=== PATIENT | male | born 1990 | race Two or more races ===

== ENCOUNTER 2024-09-26 22:56 | Inpatient (IN) | payer OTHER ==
[~2024-09-26] VITALS: Ht 180.3 cm; Wt 62.0 kg
[2024-09-27 00:18] LABS: Basophils # (auto) 0.1 10 ^3/uL (0-0.2); Basophils % (auto) 0.7 % (0.0-2.0); Eosinophils # (auto) 0.1 10 ^3/uL (0-0.8); Hematocrit 38.1 % (41.0-53.0); Hemoglobin 13.2 g/dL (13.5-17.5); Lymphocytes # (auto) 2.3 10 ^3/uL (0.4-5.4); Lymphocytes % (auto) 16.2 % (10.0-50.0); Mean Corpuscular Hemoglobin 31.9 pg (28.0-32.0); Mean Corpuscular Hgb Conc. 34.7 g/dL (32.0-36.0); Mean Corpuscular Volume 92.1 fL (80.0-100.0); Monocytes # (auto) 1.6 10 ^3/uL (0-1.3); Monocytes % (auto) 11.1 % (0.0-12.0); Neutrophils # (auto) 9.9 10 ^3/uL (1.6-8.6); Nucleated Red Blood Cells % 2.3 %; Platelet Count (auto) 321 10^3/uL (140-450); Red Blood Cells 4.13 10^6/uL (4.5-5.90); Red Cell Distribution Width 14.7 % (11.8-14.3)
[2024-09-27 00:33] LABS: Chloride 108 mmol/L (98-107); Potassium 4.1 mmol/L (3.5-5.1); Sodium 140 mmol/L (136-145)
[2024-09-27 00:34] LABS: Anion Gap 7 (5-15); Calcium 10.4 mg/dL (8.7-10.4); Carbon Dioxide 25 mmol/L (20-31)
[2024-09-27 00:39] LABS: BUN/Creatinine Ratio 12.7 (10.0-20.0); Blood Urea Nitrogen 10 mg/dL (9-23); Glucose 84 mg/dL (74-106)
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
[2024-09-27] MEDS: HYDROcodone-ACET 10/325MG TAB PO ONE (02:51)
[2024-09-27 02:52] VITALS: PULSE 74; RESP 17; O2SAT 95
[2024-09-27] MEDS: KETOROLAC TROMETH 30 MG/ML 1ML VIAL IV ONE (03:26)
[2024-09-27] MEDS: SODIUM CHLORIDE 0.9% 1,000 ML IV ONE ×2 (03:27→06:00)
--- NOTE | 2024-09-27 06:49 | DVHHP2 ---
History of Present Illness Reason for Visit: Lower extremity pain History of Present Illness 34-year-old male presents for evaluation of lower extremity pain. Patient with history of sickle cell crisis last flare of the two years ago presents for evaluation of left lower extremity sharp pain which has been ongoing for the past one day. He feels he is having a sickle cell crisis. Denies any other acute complaints at the moment. Past Medical History Sickle cell disease Past Surgical History Denies Family History Noncontributory Smoke: No ALCOHOL: none Drugs: None Lives: with Family Review of Systems Review of Systems Review of systems are currently negative otherwise addressed in HPI. Allergies: Coded Allergies: NO KNOWN ALLERGIES (Unverified , 09/26/24) Medications Current Medications Medications Dose Ordered Sig/Jimmy Route Start Time Stop Time Status Last Admin Dose Admin Acetaminophen/ Hydrocodone Bitart 1 tab Q4HP PRN PO 09/27/24 05:00 Temazepam 15 mg QHSP PRN PO 09/27/24 05:00 Ondansetron HCl 4 mg Q4HP PRN IV 09/27/24 05:00 Acetaminophen 650 mg Q6HP PRN PO 09/27/24 05:00 Morphine Sulfate 2 mg Q6HPRN PRN IV 09/27/24 05:00 Exam Vital Signs Vital Signs Date Time Temp Pulse Resp B/P (MAP) Pulse Ox O2 Delivery O2 Flow Rate FiO2 09/27/24 06:00 61 14 119/71 (87) 97 09/27/24 02:52 Room Air* 0 21 09/27/24 02:52 98.0 98.0 Exam Gen: 34-year-old male in mild distress Skin: Warm, dry, normal color and texture, no rash. HEENT: Normocephalic atraumatic, mucous membranes moist and pink. Neck: Cervical and supraclavicular nodes normal without enlargement, trachea is midline, thyroid gland is normal without masses. Pulmonary: Clear to auscultation and percussion bilaterally. Cardiac: Regular rate and rhythm. No murmur Abdomen: Soft, nontender, nondistended, bowel sounds present all 4 quadrants, no guarding, no rigidity, no organomegaly. Extremities: No cyanosis, clubbing, no edema Neuro: Cranial nerves II through XII grossly intact, normal affect and speech, no focal motor deficits. Labs/Xrays Labs Test 09/27/24 00:46 09/26/24 23:59 Range/Units Troponin I High Sensitivity 9 </=54 ng/L White Blood Count 14.0 H 4.4-10.8 10^3/uL Red Blood Count 4.13 L 4.5-5.90 10^6/uL Hemoglobin 13.2 L 13.5-17.5 g/dL Hematocrit 38.1 L 41.0-53.0 % Mean Corpuscular Volume 92.1 80.0-100.0 fL Mean Corpuscular Hemoglobin 31.9 28.0-32.0 pg Mean Corpuscular Hemoglobin Concent 34.7 32.0-36.0 g/dL Red Cell Distribution Width 14.7 H 11.8-14.3 % Platelet Count 321 140-450 10^3/uL Mean Platelet Volume 7.7 6.9-10.8 fL Neutrophils (%) (Auto) 71.0 37.0-80.0 % Lymphocytes (%) (Auto) 16.2 10.0-50.0 % Monocytes (%) (Auto) 11.1 0.0-12.0 % Eosinophils (%) (Auto) 1.0 0.0-7.0 % Basophils (%) (Auto) 0.7 0.0-2.0 % Neutrophils # (Auto) 9.9 H 1.6-8.6 10 ^3/uL Lymphocytes # (Auto) 2.3 0.4-5.4 10 ^3/uL Monocytes # (Auto) 1.6 H 0-1.3 10 ^3/uL Eosinophils # (Auto) 0.1 0-0.8 10 ^3/uL Basophils # (Auto) 0.1 0-0.2 10 ^3/uL Nucleated Red Blood Cells 2.3 % Reticulocyte Count (auto) 3.58 H 0.5-1.5 % Sodium Level 140 136-145 mmol/L Potassium Level 4.1 3.5-5.1 mmol/L Chloride Level 108 H 98-107 mmol/L Carbon Dioxide Level 25 20-31 mmol/L Anion Gap 7 5-15 Blood Urea Nitrogen 10 9-23 mg/dL Creatinine 0.79 0.700-1.30 mg/dL Glomerular Filtration Rate Calc 120 >90 mL/min BUN/Creatinine Ratio 12.7 10.0-20.0 Serum Glucose 84 74-106 mg/dL Calcium Level 10.4 8.7-10.4 mg/dL B-Type Natriuretic Peptide 2.41 0-100 pg/mL Assessment/Plan Assessment/Plan Assessment Sickle cell crisis Leukocytosis , reactive Plan Admit the patient to [facility] surge to the hospitalist Pain management Maintenance IV fluids/oxygen Hematology consultation Continue treatment per orders. Plan discussed with: Patient My Orders Orders - GODFREY ABDI Procedure Category Date Status Time Regular Diet DIET 09/27/24 Transmitted Breakfast * Hematology/Oncology CONS 09/27/24 Transmitted Consult 04:46 Basic Metabolic Panel LAB 09/28/24 Verified 04:00 Admit ADMIT 09/27/24 Transmitted 04:46 Oxygen Per Hour RT 09/27/24 Transmitted 04:46 Hydrocodone-Acet PHA 09/27/24 In Process 5/325mg Tab ([place] 05:00 Temazepam (Restoril) PHA 09/27/24 In Process 05:00 Ondansetron Hcl PHA 09/27/24 In Process (Zofran) 05:00 Complete Blood Count LAB 09/28/24 Verified 04:00 Condition: Stable NISA 09/27/24 In Process 04:46 Acetaminophen Tablet PHA 09/27/24 In Process (Tylenol Tablet) 05:00 Bedrest With Bathroom NISA 09/27/24 In Process Privileg 04:46 Morphine Sulfate PHA 09/27/24 In Process Injection 05:00 Sodium Chloride 0.9% PHA 09/27/24 In Process 05:00 Date of Service: Sep 27, 2024 Billing Provider: GODFREY ABDI Common Visit Codes: [id number] INP/OBS CARE (MOD) GODFREY ABDI Sep 27, 2024 06:49
[2024-09-27 09:12] VITALS: PULSE 79; RESP 18; O2SAT 97
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
[2024-09-27 09:52] LABS: Alanine Aminotransferase 122 U/L (7-40); Albumin 4.1 g/dL (3.2-4.8); Alkaline Phosphatase 67 U/L (46-116); Anion Gap 8 (5-15); Aspartate Aminotransferase 472 U/L (13-40); BUN/Creatinine Ratio 13.9 (10.0-20.0); Bilirubin, Total 3.6 mg/dL (0.2-1.0); Blood Urea Nitrogen 11 mg/dL (9-23); Calcium 9.4 mg/dL (8.7-10.4); Carbon Dioxide 24 mmol/L (20-31); Chloride 109 mmol/L (98-107); Glucose 84 mg/dL (74-106); Sodium 141 mmol/L (136-145); Total Protein 6.6 g/dL (5.7-8.2)
[2024-09-27] MEDS: FOLIC ACID 1 MG TAB PO SCH (10:55)
[2024-09-27] MEDS: ONDANSETRON HCL 4 MG/2 ML VIAL IV PRN (10:56)
[2024-09-27] MEDS: MORPHINE SULFATE INJ 2 MG/ml SYRG IV PRN (10:56)
--- NOTE | 2024-09-27 11:04 | DVH ---
Left LOWER EXTREMITY VENOUS DOPPLER CLINICAL HISTORY: pain Technique: Duplex doppler evaluation of the deep venous systems of left lower extremities from the co mmon femoral veins to the popliteal veins including color doppler and spectral/pulsed waveform analys is was performed. COMPARISON: None FINDINGS: The left common femoral, superficial femoral, popliteal, and posterior tibial veins appear patent wi th normal augmentation, phasicity, compressibility and color-flow. IMPRESSION: 1. There is no sonographic evidence for DVT in the left lower extremity. HS:Y
--- NOTE | 2024-09-27 11:07 | DVH ---
Left LOWER EXTREMITY ARTERIAL DOPPLER EXAM CLINICAL HISTORY: pain TECHNIQUE: Left lower extremity arterial Doppler ultrasound evaluation. COMPARISON: US LT LOWER DVT on DOS: 09/27/24 FINDINGS: There are predominantly triphasic waveforms throughout the left lower extremity arteries. There is no focal vessel occlusion. The peak systolic velocities are within normal limits. No significant athero matous plaque formation is seen. IMPRESSION: 1. No hemodynamically significant stenosis in the left lower extremity arteries. HS:Y
[2024-09-27 13:06] VITALS: BP 112/52; PULSE 58; RESP 17; O2SAT 100
[2024-09-27] MEDS: HYDROcodone-ACET 5/325MG TAB PO PRN (21:54)
[2024-09-27 23:05] VITALS: RESP 16; O2SAT 100
[2024-09-27] MEDS: TEMAZEPAM 15 MG CAP PO PRN (23:23)
[2024-09-28] VITALS (7 sets, daily range): BP systolic 107–139; BP diastolic 60–86; PULSE 46–66; RESP 16–17; TEMP 97.8–98.3; O2SAT 96–100
[2024-09-28 05:58] LABS: Basophils # (auto) 0.1 10 ^3/uL (0-0.2); Basophils % (auto) 1.2 % (0.0-2.0); Eosinophils # (auto) 0.5 10 ^3/uL (0-0.8); Eosinophils % (auto) 5.7 % (0.0-7.0); Hematocrit 31.7 % (41.0-53.0); Hemoglobin 11.2 g/dL (13.5-17.5); Lymphocytes # (auto) 3.6 10 ^3/uL (0.4-5.4); Mean Corpuscular Hemoglobin 33.1 pg (28.0-32.0); Mean Corpuscular Hgb Conc. 35.5 g/dL (32.0-36.0); Mean Corpuscular Volume 93.2 fL (80.0-100.0); Monocytes # (auto) 1.1 10 ^3/uL (0-1.3); Monocytes % (auto) 13.4 % (0.0-12.0); Neutrophils # (auto) 2.9 10 ^3/uL (1.6-8.6); Neutrophils % (auto) 35.7 % (37.0-80.0); Platelet Count (auto) 264 10^3/uL (140-450); Red Cell Distribution Width 14.8 % (11.8-14.3); White Blood Cell 8.1 10^3/uL (4.4-10.8)
[2024-09-28 06:04] LABS: Anion Gap 4 (5-15); Carbon Dioxide 26 mmol/L (20-31); Chloride 112 mmol/L (98-107); Potassium 4.2 mmol/L (3.5-5.1); Sodium 142 mmol/L (136-145)
[2024-09-28 06:09] LABS: Glucose 98 mg/dL (74-106)
[2024-09-28 06:10] LABS: BUN/Creatinine Ratio 11.1 (10.0-20.0); Blood Urea Nitrogen 9 mg/dL (9-23)
[2024-09-28 06:27] LABS: Nucleated Red Blood Cells % 3.1 %
[2024-09-28] MEDS: ACETAMINOPHEN 325 MG TAB PO PRN (10:32)
[2024-09-28 10:58] LABS: Basophils # (auto) 0.1 10 ^3/uL (0-0.2); Basophils % (auto) 1.3 % (0.0-2.0); Eosinophils # (auto) 0.3 10 ^3/uL (0-0.8); Eosinophils % (auto) 4.7 % (0.0-7.0); Hematocrit 34.8 % (41.0-53.0); Lymphocytes # (auto) 1.7 10 ^3/uL (0.4-5.4); Lymphocytes % (auto) 23.8 % (10.0-50.0); Mean Corpuscular Hemoglobin 32.2 pg (28.0-32.0); Mean Corpuscular Hgb Conc. 34.5 g/dL (32.0-36.0); Mean Corpuscular Volume 93.4 fL (80.0-100.0); Monocytes # (auto) 0.9 10 ^3/uL (0-1.3); Neutrophils # (auto) 4.2 10 ^3/uL (1.6-8.6); Neutrophils % (auto) 57.2 % (37.0-80.0); Platelet Count (auto) 286 10^3/uL (140-450); Red Blood Cells 3.73 10^6/uL (4.5-5.90); Red Cell Distribution Width 14.9 % (11.8-14.3); White Blood Cell 7.3 10^3/uL (4.4-10.8)
[2024-09-28 11:13] LABS: Nucleated Red Blood Cells % 3.4 %
--- NOTE | 2024-09-28 11:33 | DVHPN2 ---
Objective Vitals Vital Signs Date Time Temp Pulse Resp B/P (MAP) Pulse Ox O2 Delivery O2 Flow Rate FiO2 09/28/24 09:00 97.8 46 16 116/65 (82) 100 97.8 09/27/24 23:05 Room Air* 0 21 Intake/Output Intake and Output 09/28/24 07:00 Intake Total 800 ml Balance 800 ml Intake Oral 800 ml # Voids 1 Medications Current Medications Medications Dose Ordered Sig/Jimmy Route Start Time Stop Time Status Last Admin Dose Admin Acetaminophen/ Hydrocodone Bitart 1 tab Q4HP PRN PO 09/27/24 05:00 09/28/24 06:45 1 TAB Temazepam 15 mg QHSP PRN PO 09/27/24 05:00 09/27/24 23:23 15 MG Ondansetron HCl 4 mg Q4HP PRN IV 09/27/24 05:00 09/27/24 17:06 4 MG Acetaminophen 650 mg Q6HP PRN PO 09/27/24 05:00 09/28/24 10:32 650 MG Morphine Sulfate 2 mg Q6HPRN PRN IV 09/27/24 05:00 09/27/24 10:56 2 MG Folic Acid 1 mg DAILY PO 09/27/24 10:00 09/28/24 10:00 1 MG Laboratory Results Laboratory Tests 09/28/24 05:07 09/28/24 10:46 Chemistry Test 09/28/24 05:07 Calcium Level 9.0 mg/dL (8.7-10.4) Assessment/Plan My Orders Orders - MARIO MACKEY MD Procedure Category Date Status Time Education - Smoking NISA 09/27/24 In Process Cessation 23:19 * Smoking Cessation CONS 09/27/24 Transmitted Consult 23:19 MARIO MACKEY MD Sep 28, 2024 11:33
[2024-09-28 11:37] LABS: Platelet Estimate Adequate
[2024-09-28 11:38] LABS: Anisocytosis Slight; Target Cell FEW
[2024-09-28 11:39] LABS: Giant Platelets Few; Large Platelets FEW
[2024-09-29] VITALS (7 sets, daily range): BP systolic 108–139; BP diastolic 51–79; PULSE 43–72; RESP 16–20; TEMP 97.7–98.1; O2SAT 95–100
[2024-09-29] MEDS: NICOTINE 21MG/24 HR TOPICAL PATCH TD SCH (10:00)
--- NOTE | 2024-09-29 11:45 | DVHPN2 ---
Objective Vitals Vital Signs Date Time Temp Pulse Resp B/P (MAP) Pulse Ox O2 Delivery O2 Flow Rate FiO2 09/29/24 09:00 98.1 66 18 139/79 (99) 95 98.1 09/28/24 20:00 Room Air* 0 21 Intake/Output Intake and Output 09/29/24 07:00 Intake Total 2340 ml Balance 2340 ml Intake Oral 2340 ml # Voids 3 # Bowel Movements 1 Medications Current Medications Medications Dose Ordered Sig/Jimmy Route Start Time Stop Time Status Last Admin Dose Admin Acetaminophen/ Hydrocodone Bitart 1 tab Q4HP PRN PO 09/27/24 05:00 09/29/24 10:24 1 TAB Temazepam 15 mg QHSP PRN PO 09/27/24 05:00 09/27/24 23:23 15 MG Ondansetron HCl 4 mg Q4HP PRN IV 09/27/24 05:00 09/27/24 17:06 4 MG Acetaminophen 650 mg Q6HP PRN PO 09/27/24 05:00 09/28/24 10:32 650 MG Morphine Sulfate 2 mg Q6HPRN PRN IV 09/27/24 05:00 09/28/24 21:43 2 MG Folic Acid 1 mg DAILY PO 09/27/24 10:00 09/29/24 10:24 1 MG Nicotine 1 patch DAILY TD 09/29/24 10:00 Laboratory Results Laboratory Tests 09/28/24 05:07 09/28/24 10:46 Assessment/Plan My Orders Orders - MARIO MACKEY MD Procedure Category Date Status Time * [employer] Technical Officer CONS 09/28/24 Transmitted Consult Nicotine 21mg/24hr PHA 09/29/24 In Process (Nicoderm 21mg/24hr) 10:00 MARIO MACKEY MD Sep 29, 2024 11:45
[2024-09-30 01:00] VITALS: BP 124/86; PULSE 52; RESP 18; TEMP 98.1; O2SAT 96
[2024-09-30 05:00] VITALS: BP 111/74; PULSE 81; RESP 19; TEMP 97.9; O2SAT 96
[2024-09-30 08:10] VITALS: PULSE 46; RESP 16; O2SAT 100
[2024-09-30 09:00] VITALS: BP 116/76; PULSE 72; RESP 18; TEMP 97.7; O2SAT 97
[2024-09-30] MEDS ORDERED: HYDR-4902 PO ×2 (11:24→12:43)
--- NOTE | 2024-09-30 11:26 | DVHDS2 ---
Discharge Summary Date of Admission Sep 27, 2024 at 04:50 Date of Discharge: Sep 30, 2024 Labs/Diagnostic Data: Laboratory Results Test 09/28/24 10:46 09/28/24 05:07 09/27/24 05:16 09/27/24 00:46 White Blood Count 7.3 10^3/uL (4.4-10.8) Red Blood Count 3.73 10^6/uL (4.5-5.90) Hemoglobin 12.0 g/dL (13.5-17.5) Hematocrit 34.8 % (41.0-53.0) Mean Corpuscular Volume 93.4 fL (80.0-100.0) Mean Corpuscular Hemoglobin 32.2 pg (28.0-32.0) Mean Corpuscular Hemoglobin Concent 34.5 g/dL (32.0-36.0) Red Cell Distribution Width 14.9 % (11.8-14.3) Platelet Count 286 10^3/uL (140-450) Mean Platelet Volume 7.7 fL (6.9-10.8) Neutrophils (%) (Auto) 57.2 % (37.0-80.0) Lymphocytes (%) (Auto) 23.8 % (10.0-50.0) Monocytes (%) (Auto) 13.0 % (0.0-12.0) Eosinophils (%) (Auto) 4.7 % (0.0-7.0) Basophils (%) (Auto) 1.3 % (0.0-2.0) Neutrophils # (Auto) 4.2 10 ^3/uL (1.6-8.6) Lymphocytes # (Auto) 1.7 10 ^3/uL (0.4-5.4) Monocytes # (Auto) 0.9 10 ^3/uL (0-1.3) Eosinophils # (Auto) 0.3 10 ^3/uL (0-0.8) Basophils # (Auto) 0.1 10 ^3/uL (0-0.2) Nucleated Red Blood Cells 3.4 % Platelet Estimate Adequate Large Platelets Few Giant Platelets Few Anisocytosis (manual) Slight Target Cells Few Schistocytes Few Sodium Level 142 mmol/L (136-145) Potassium Level 4.2 mmol/L (3.5-5.1) Chloride Level 112 mmol/L (98-107) Carbon Dioxide Level 26 mmol/L (20-31) Anion Gap 4 (5-15) Blood Urea Nitrogen 9 mg/dL (9-23) Creatinine 0.81 mg/dL (0.700-1.30) Glomerular Filtration Rate Calc 119 mL/min (>90) BUN/Creatinine Ratio 11.1 (10.0-20.0) Serum Glucose 98 mg/dL (74-106) Calcium Level 9.0 mg/dL (8.7-10.4) Lactate Dehydrogenase 358 U/L (120-246) Total Bilirubin 3.6 mg/dL (0.2-1.0) Aspartate Amino Transferase (AST) 472 U/L (13-40) Alanine Aminotransferase (ALT) 122 U/L (7-40) Alkaline Phosphatase 67 U/L (46-116) Total Protein 6.6 g/dL (5.7-8.2) Albumin 4.1 g/dL (3.2-4.8) Troponin I High Sensitivity 9 ng/L (</=54) Test 09/26/24 23:59 Reticulocyte Count (auto) 3.58 % (0.5-1.5) B-Type Natriuretic Peptide 2.41 pg/mL (0-100) Other Laboratory Tests 09/28/24 10:46 09/28/24 05:07 Final Diagnosis/Problems List sickle cell crisis Discharge Disposition: Home Discharge Instruct/Medications Diet: Regular Activity: No Restrictions, As Tolerated Follow Up/Referral: pcp 1-2 weeks Medications: [place] 5/325 one tab q4h PRN for pain Discharge Statement: "Patient was advised to return to the ER or call 911 if any headaches, dizziness, shortness of breath, chest pain, abdominal pain, bleeding, fevers, or worsening of medical condition. Patient was counseled about treatment plan, medications, possible side effects, patientverbalized understanding. All questions were answered to the best of my ability. This discharge took greater then 30 minutes in planning, reviewing documentation, counseling the patient, and discussing with other team members." ASSESSMENT ASSESSMENT Assessment sickle cell crisis MARIO MACKEY MD Sep 30, 2024 11:26
[2024-09-30 13:00] VITALS: BP 120/69; PULSE 80; RESP 18; TEMP 98.7; O2SAT 100
== END 2024-09-30 15:05 | disposition home or self-care (01) | DRG 662 ==
LOC: ER 22:56 → OVERFLOW 09-27 04:50 → WEST WING 09-27 23:05
PROVIDERS: ADMIT Nurse Practitioner; ATTEND Internal Medicine
DX: D57.00 Hb-SS disease with crisis, unspecified (principal); D72.829 Elevated white blood cell count, unspecified; F17.210 Nicotine dependence, cigarettes, uncomplicated; Z90.81 Acquired absence of spleen; Z84.81 Family history of carrier of genetic disease; Z83.2 Family history of diseases of the blood and blood-forming organs and certain disorders involving the immune mechanism
CPT/HCPCS: 36415; 80048; 80053; 83021; 83615; 83880; 84484; 85025; 85045; 85660; 93926; 93971; G0378; J1885; J2405